=== PATIENT | female | born 1970 ===

== ENCOUNTER 2019-06-27 05:03 | Day surgery (SDC) | payer OTHER ==
[~2019-06-27 05:03] MED LIST: AMLO PO; INDERAL PO; LOTENSIN20 MG PO; NORVASC5 MG PO
[2019-06-27] MEDS ORDERED: DOXYCYCLINE HY100 M2 PO (12:14)
[2019-06-27] MEDS ORDERED: NAPROXEN500 MG PO (12:14)
== END 2019-06-27 14:50 | disposition home or self-care (01) ==
LOC: CIR.AMB 05:03
DX: D25.0 Submucous leiomyoma of uterus (principal); N39.8 Other specified disorders of urinary system

== ENCOUNTER 2020-07-02 05:55 | Day surgery (SDC) | payer OTHER ==
[~2020-07-02] VITALS: Ht 154.9 cm; Wt 95.3 kg
[~2020-07-02 05:55] MED LIST changes: +DOXYCYCLINE HY100 M2 PO; +LOTREL 5-10 MG1 CAP PO; +NAPROXEN500 MG PO; +PROPRANOLOL HCL60 MG PO
[2020-07-03] MEDS ORDERED: NAPROXEN SODIU500 M1 PO (08:51)
[2020-07-03] MEDS ORDERED: CODE1TAB37 PO (08:51)
== END 2020-07-03 08:00 | disposition home or self-care (01) ==
LOC: SURH 05:55 → CIR.AMB 05:55 → O/R 05:55 → EDSTATUS 09:15 → RECOVERY 09:15 → SURH 09:15 → OB/GYN 09:40 → O/R 09:40 → SURH 09:45 → CIR.AMB 07-03 08:00 → OB/GYN 07-03 09:07
PROVIDERS: ATTEND Obstetrics & Gynecology
DX: D25.1 Intramural leiomyoma of uterus (principal); N92.1 Excessive and frequent menstruation with irregular cycle; N72 Inflammatory disease of cervix uteri; N80.0 Endometriosis of uterus; N83.291 Other ovarian cyst, right side